=== PATIENT | male | born 1930 | race Caucasian/White ===

== ENCOUNTER 2017-01-18 23:31 | Emergency (ER) | payer MEDICARE, OTHER ==
[~2017-01-18] VITALS: Ht 182.9 cm; Wt 74.8 kg
[~2017-01-18 23:31] MED LIST: ACETAMINOPHEN325 M1 ORAL; ARICEPT10 MG ORAL; ATORVASTATIN CA10 MG ORAL; COLACE100 MG ORAL; DULCOLAX10 MG RC; LISINOPRIL20 MG ORAL; PEPCID20 MG ORAL; PROZAC20 MG ORAL
[2017-01-18 23:45] VITALS: BP 145/71
[2017-01-19 01:45] VITALS: BP 156/64
--- NOTE | 2017-01-19 02:59 | Emergency Room Report ---
History of Present Illness General Chief Complaint: Upper Extremity Injury Source: Patient, EMS Present Illness HPI Patient is a 86-year-old male recent injury to his right upper extremity. 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 The patient reports falling onto his right side. He denies any head injury. Denies loss of consciousness. Allergies: Coded Allergies: No Known Allergies (Unverified , 01/18/17) Patient History Past Medical History: see triage record, CVA/TIA Reviewed Nursing Documentation: PMH: Agreed, PSxH: Agreed Nursing Documentation-PMH Hx Cardiac Problems: Yes - A FIB Hx Hypertension: Yes Hx Gastrointestinal Problems: Yes - GERD History Of Psychiatric Problem: Yes - DEMENTIA Hx Cerebrovascular Accident: Yes Review of Systems All Other Systems: limited - by poor historian Physical Exam Vital Signs Date Time Temp Pulse Resp B/P Pulse Ox O2 Delivery O2 Flow Rate FiO2 01/18/17 23:10 97.5 64 18 145/71 98 Room Air General Appearance: well appearing, no apparent distress, alert, GCS 15 Head: normocephalic, atraumatic ENT: hearing grossly normal, normal voice Neck: full range of motion, supple Respiratory: chest non-tender, lungs clear, no respiratory distress, speaking full sentences Cardiovascular #1: normal peripheral pulses, regular rate, rhythm, no edema Gastrointestinal: normal inspection Musculoskeletal: no calf tenderness, decreased range of mation, swelling - right upper extremity redness Neurologic: normal gait Psychiatric: mood/affect normal Skin: other - bruising to right upper extremity Medical Decision Making Diagnostic Impression: Primary Impression: Humerus fracture ER Course Patient presented for upper extremity fracture. X-ray imaging of the right humerus showed a proximal humerus fracture. Patient was noted to have prior CVA was not able to use the right upper extremity. The patient was placed in a shoulder immobilizer. Patient was sent back to nursing facility Last Vital Signs Date Time Temp Pulse Resp B/P Pulse Ox O2 Delivery O2 Flow Rate FiO2 01/19/17 01:45 97.8 68 21 156/64 97 Room Air Status: improved Disposition: [facility] Condition: Stable Referrals: NOT CHOSEN IPA/,REFERRING (PCP) Ángel Kwon Jan 19, 2017 02:59
[2017-01-19 03:45] VITALS: BP 156/71
--- NOTE | 2017-01-19 11:59 | Diagnostic Imaging Report ---
Indications: PAIN Technique: Two views of the right humerus Comparison: None Findings: There is an oblique fracture of the proximal humeral diaphysis. This is slightly angulated, displaced by about 7 mm. There is an old healed fracture deformity of the humeral neck. Impression: Positive for proximal humeral fracture Electronic medical record indicates this was recognized by the emergency room physician.
== END 2017-01-19 03:45 ==
LOC: EDBD 23:31 → EMR 23:57
DX: S42.201A Unspecified fracture of upper end of right humerus, initial encounter for closed fracture (principal); W19.XXXA Unspecified fall, initial encounter; Y92.9 Unspecified place or not applicable; I10 Essential (primary) hypertension; K21.9 Gastro-esophageal reflux disease without esophagitis; F03.90 Unspecified dementia, unspecified severity, without behavioral disturbance, psychotic disturbance, mood disturbance, and anxiety; Z86.73 Personal history of transient ischemic attack (TIA), and cerebral infarction without residual deficits
CPT/HCPCS: 29240; 99283